=== PATIENT | male | born 1935 | race Two or more races ===

== ENCOUNTER 2018-01-08 09:46 | Outpatient (CLI) | payer OTHER ==
[~2018-01-08 09:46] MED LIST: ASPIRIN325 MG; ATORVASTATIN CA10 MG; CILOSTAZOL100 MG; ISORDIL10 MG PO; ISOSORBIDE DINI30 MG; METOPROLOL SUC100 MG; SINVASTATIN; TOPROL XL25 M1; ZOCOR40 MG
== END 2018-01-08 09:56 | disposition home or self-care (01) ==
LOC: RAD 501 09:46
DX: M54.2 Cervicalgia (principal); M54.5 Low back pain; S00.80XS Unspecified superficial injury of other part of head, sequela

== ENCOUNTER 2018-05-21 09:21 | Outpatient (CLI) | payer OTHER | END 2018-05-21 09:52 | disposition home or self-care (01) | LOC: NUCLEAR 09:21 | DX: I11.9 Hypertensive heart disease without heart failure (principal); R00.2 Palpitations ==

== ENCOUNTER → 2018-12-18 | Outpatient (CLI) | payer OTHER | END | disposition home or self-care (01) | LOC: NUCLEAR 14:00 | DX: I87.2 Venous insufficiency (chronic) (peripheral) (principal); I73.9 Peripheral vascular disease, unspecified ==

== ENCOUNTER → 2018-12-20 | Outpatient (CLI) | payer OTHER | END | disposition home or self-care (01) | LOC: NUCLEAR 08:30 | DX: I87.2 Venous insufficiency (chronic) (peripheral) (principal); I73.9 Peripheral vascular disease, unspecified ==

== ENCOUNTER 2020-04-26 08:59 | Outpatient (CLI) | payer OTHER | END 2020-04-26 09:04 | disposition home or self-care (01) | LOC: TOM 08:59 | PROVIDERS: ATTEND Internal Medicine | DX: G45.8 Other transient cerebral ischemic attacks and related syndromes (principal) ==

== ENCOUNTER 2021-10-10 10:48 | Outpatient (CLI) | payer OTHER ==
[2021-10-10] MEDS ORDERED: SINGULAIR10 MG (15:24)
[2021-10-11] MEDS ORDERED: CILOSTAZOL100 MG (11:30)
[2021-10-11] MEDS ORDERED: ISOSORBIDE MONO30 M2 (11:30)
[2021-10-11] MEDS ORDERED: ST. JOSEPH ASPI81 M2 (11:30)
[2021-10-11] MEDS ORDERED: SYSTANE ULTRA 010 ML (11:30)
[2021-10-11] MEDS ORDERED: METOPROLOL TAR100 MG (11:31)
[2021-10-11] MEDS ORDERED: GABAPENTIN100 M2 (11:31)
[2021-10-11] MEDS ORDERED: VITAMIN B-121000 MCG (11:31)
[2021-10-11] MEDS ORDERED: OMEGA-3 FISH O1 EAC3 (11:31)
== END 2021-10-10 12:23 | disposition home or self-care (01) ==
LOC: EKG 10:48
PROVIDERS: ATTEND Internal Medicine
DX: R00.0 Tachycardia, unspecified (principal)

== ENCOUNTER 2021-10-10 12:19 | Outpatient (CLI) | payer OTHER ==
[2021-10-10] MEDS ORDERED: SINGULAIR10 MG (15:24)
[2021-10-11] MEDS ORDERED: CILOSTAZOL100 MG (11:30)
[2021-10-11] MEDS ORDERED: ST. JOSEPH ASPI81 M2 (11:30)
[2021-10-11] MEDS ORDERED: SYSTANE ULTRA 010 ML (11:30)
[2021-10-11] MEDS ORDERED: ISOSORBIDE MONO30 M2 (11:30)
[2021-10-11] MEDS ORDERED: GABAPENTIN100 M2 (11:31)
[2021-10-11] MEDS ORDERED: VITAMIN B-121000 MCG (11:31)
[2021-10-11] MEDS ORDERED: OMEGA-3 FISH O1 EAC3 (11:31)
[2021-10-11] MEDS ORDERED: METOPROLOL TAR100 MG (11:31)
== END 2021-10-10 12:34 | disposition home or self-care (01) ==
LOC: SONOGRAMA 12:19
PROVIDERS: ATTEND Internal Medicine
DX: J44.1 Chronic obstructive pulmonary disease with (acute) exacerbation (principal); M15.0 Primary generalized (osteo)arthritis; M25.552 Pain in left hip; M25.551 Pain in right hip

== ENCOUNTER 2021-10-10 14:27 | Inpatient (IN) | payer OTHER ==
[~2021-10-10] VITALS: Ht 121.9 cm; Wt 68.0 kg
[2021-10-10] MEDS ORDERED: SINGULAIR10 MG (15:24)
--- NOTE | 2021-10-10 15:24 | NUR ---
SE RECIBE PTE ALERTA Y ORIENTADO X3 EL CUAL REFIERE VENIR POR DIFICULTAD RESPIRATORIA, PTE REFIERE PADECER DE ASMA. SE MIDEN S/V A PTE, PTE SATURANDO 91%, SE OBSERVA A PTE HABLNADO ORACIONES COMPLETAS. PTE SE COLOCA EN UNIDAD DE ASMA UNIT.
--- NOTE | 2021-10-10 16:53 | NUR ---
PACIENTE EVALUADO POR EL DR. JOSEPH QUIEN ORDENA TX MEDICO. SE ORIENTA A PACIENTE SOBRE EL MISMO REFIERE ENTENDER Y SE EJEUCTAN ORDENES MEDICAS. PENDIENTE TERAPIAS RESP. SE NOTIFICAN LAS MISMAS.
--- NOTE | 2021-10-10 20:14 | NUR ---
SE RECIBE PTE ALERTA Y ORIENTADO X3 ACOMPANADO. SE CONECTA PTE A MONITOR CARDIACO Y OXIMETRIA. SE MIDE B/P MANUAL EN 90/60 Y SE NOTIFICA A QUIEN REFIERE QUE NO SE LE ADMINITRE LASIX NI SE INSERTE DODGE. SE REALIZA EKG Y SE PRESENTA A DR. JOSEPH. SE VIVIENNE MUESTRAS DE LAB. PEDRO LUIS ORDEN MEDICA BAJO MEDIDAS ASEPTICAS. SE COLOCA PTE EN POSICION SARAVIA Y SE EDUCA A PTE/FAMILIAR SOBRE TRATAMIENTO MEDICO.
--- NOTE | 2021-10-10 21:58 | NUR ---
2129 DR.LUIS RODRÍGUEZ Y PASAN VISITA. DR.LUIS RODRÍGUEZ ORDENA MANTENER EN HOLD LEVOPHED 8MG/250ML.YA QUE LAS PRESIONES SE ENCUENTRAN 130/90. ORDENA ADMINISTRAR 180MG BRILINTA PO, LASIX 80MG IV PUSH, ASPIRINA 325MG PO,LOVENOX 60MG SQ STAT. SE ADMINISTRAN MEDICAMENTOS Y SE EDUCA A PTE SOBRE TRATAMIENTO MEDICO.PTE SE MANTIENE BAJO OBSERVACION POR CAMBIOS.
--- NOTE | 2021-10-10 23:10 | NUR ---
10:45PM SE LLAMA A SE LE ENVIA EKG Y SE NOTIFICA DE PULSO DE PTE EN 160. ORDENA ADMINISTRAR PARISA DE AMIODARONE 150MG/50ML BAJANDO A 10MIN. ORDENA COMENZAR CON DRIP DE NEXTERONE A BAJAR A 33ML/HR EN LAS PRIMERAS 6HR Y CRUZ A 16ML/HR X 16HR. 11:00PM SE ENTREGA A TARA Y SE LE NOTIFICA ORDEN PENDIENTE DE NEXTERONE 360MG/200ML EMPEZANDO A 33ML/HR.
[2021-10-11] MEDS ORDERED: SYSTANE ULTRA 010 ML (11:30)
[2021-10-11] MEDS ORDERED: ISOSORBIDE MONO30 M2 (11:30)
[2021-10-11] MEDS ORDERED: CILOSTAZOL100 MG (11:30)
[2021-10-11] MEDS ORDERED: ST. JOSEPH ASPI81 M2 (11:30)
[2021-10-11] MEDS ORDERED: VITAMIN B-121000 MCG (11:31)
[2021-10-11] MEDS ORDERED: METOPROLOL TAR100 MG (11:31)
[2021-10-11] MEDS ORDERED: OMEGA-3 FISH O1 EAC3 (11:31)
[2021-10-11] MEDS ORDERED: GABAPENTIN100 M2 (11:31)
== END 2021-11-07 07:42 | disposition expired ==
LOC: ER 14:27 → ICU 23:22 → ICU-2 23:22 → ICU 10-11 05:01 → MEDJ 10-26 19:48
PROVIDERS: ADMIT Internal Medicine; ATTEND Internal Medicine
PROC: B24BYZZ Ultrasonography of Heart with Aorta using Other Contrast (ICD-10-PCS; 2021-10-10)
PROC: 3E0F7SF Introduction of Other Gas into Respiratory Tract, Via Natural or Artificial Opening (ICD-10-PCS; 2021-10-10)
PROC: 5A09457 Assistance with Respiratory Ventilation, 24-96 Consecutive Hours, Continuous Positive Airway Pressure (ICD-10-PCS; 2021-10-10)
PROC: 02HV33Z Insertion of Infusion Device into Superior Vena Cava, Percutaneous Approach (ICD-10-PCS; 2021-10-11)
PROC: 5A0945A Assistance with Respiratory Ventilation, 24-96 Consecutive Hours, High Flow/Velocity Cannula (ICD-10-PCS; 2021-10-11)
PROC: 4A12X4Z Monitoring of Cardiac Electrical Activity, External Approach (ICD-10-PCS; 2021-10-26)
PROC: 0W993ZZ Drainage of Right Pleural Cavity, Percutaneous Approach (ICD-10-PCS; principal; 2021-10-27)
PROC: BW24ZZZ Computerized Tomography (CT Scan) of Chest and Abdomen (ICD-10-PCS; 2021-10-27)
PROC: 0W9B3ZZ Drainage of Left Pleural Cavity, Percutaneous Approach (ICD-10-PCS; 2021-10-28)
DX: I11.0 Hypertensive heart disease with heart failure (principal); I21.4 Non-ST elevation (NSTEMI) myocardial infarction; J96.00 Acute respiratory failure, unspecified whether with hypoxia or hypercapnia; I50.23 Acute on chronic systolic (congestive) heart failure; N17.8 Other acute kidney failure; J91.8 Pleural effusion in other conditions classified elsewhere; I24.9 Acute ischemic heart disease, unspecified; N39.0 Urinary tract infection, site not specified; B95.7 Other staphylococcus as the cause of diseases classified elsewhere; D72.829 Elevated white blood cell count, unspecified; I48.91 Unspecified atrial fibrillation; R41.82 Altered mental status, unspecified; R74.01 Elevation of levels of liver transaminase levels; I25.10 Atherosclerotic heart disease of native coronary artery without angina pectoris; E78.00 Pure hypercholesterolemia, unspecified; E11.51 Type 2 diabetes mellitus with diabetic peripheral angiopathy without gangrene; Z66 Do not resuscitate; Z79.84 Long term (current) use of oral hypoglycemic drugs; Z20.822 Contact with and (suspected) exposure to COVID-19